=== PATIENT | female | born 1950 | race Hispanic/Latino ===

== ENCOUNTER 2018-04-21 13:10 | Inpatient (IN) | payer MEDICARE ==
[~2018-04-21] VITALS: Ht 152.4 cm; Wt 85.5 kg
[2018-04-21 14:00] LABS: BASOPHILS % (AUTO) 1.3 % (0.0-5.0); EOSINOPHILS % (AUTO) 1.3 % (0.0-8.0); HEMATOCRIT 41.9 % (36-48); LYMPHOCYTES % (AUTO) 21.7 % (21.0-51.0); MEAN CORPUSCULAR HEMOGLOBIN 30.2 pg (27.0-33.0); MEAN CORPUSCULAR HGB CONC 32.7 g/dL (32.0-36.0); MEAN CORPUSCULAR VOLUME 92.2 fL (79-99); MONOCYTES % (AUTO) 8.2 % (3.0-13.0); NEUTROPHILS % (AUTO) 67.5 % (40.0-77.0); NUCLEATED RED BLOOD CELLS 0.1 % (0.0-0.19); PLATELET COUNT (AUTO) 200 K/uL (130-400); RED BLOOD CELL COUNT(AUTO) 4.54 MIL/uL (4.00-5.50); RED CELL DISTRIBUTION WIDTH 13.9 % (11.0-15.5); WHITE BLOOD COUNT (AUTO) 7.4 K/uL (4.8-10.8)
[2018-04-21] MEDS ORDERED: FAMOTIDINE/PF 20 MG/2 ML VIAL IV ONE (14:00)
[2018-04-21] MEDS ORDERED: SODIUM CHLORIDE 0.9% 500ML 500 ML IV ONE (14:00)
[2018-04-21 14:07] LABS: CREATININE 0.6 mg/dL (0.5-1.5); POTASSIUM 3.6 mmol/L (3.5-5.1)
[2018-04-21 14:11] LABS: ALBUMIN 3.7 g/dL (3.5-5.0); BILIRUBIN,TOTAL 0.6 mg/dL (0.2-1.0); TOTAL PROTEIN, SERUM 7.6 g/dL (6.0-8.3)
[2018-04-21 14:23] LABS: INR 1.05 (0.85-1.15); PARTIAL THROMBOPLASTIN TIME 28.2 SEC (26.3-35.5)
[2018-04-21 14:24] LABS: B-TYPE NATRIURETIC PEPTIDE 26 pg/mL (0-100)
[2018-04-21] MEDS ORDERED: ACETAMINOPHEN 325 MG TAB PO PRN (16:15)
[2018-04-21] MEDS ORDERED: HYDRALAZINE HCL 20 MG/ML VIAL IV PRN (16:15)
[2018-04-21] MEDS ORDERED: ONDANSETRON HCL 4 MG/2 ML VIAL IV PRN (16:15)
[2018-04-21] MEDS ORDERED: MORPHINE SULFATE 4 MG/1ML SYG IV PRN (16:15)
[2018-04-21 18:35] LABS: HEMATOCRIT 37.5 % (36-48)
[2018-04-21 19:15] VITALS: BP 146/92
[2018-04-21] MEDS: SODIUM CHLORIDE 0.9% 1000ML 1,000 ML IV SCH (20:23)
[2018-04-21] MEDS ORDERED: DIATR MEGLU/DIATRIZOATE SODIUM 30 ML BOTTLE ONE (21:33)
[2018-04-21] MEDS ORDERED: IOHEXOL-350 75 ML VIAL IV ONE (22:20)
[2018-04-22 01:52] LABS: APPEARANCE,URINE Clear (CLEAR); BILIRUBIN,URINE Negative (NEGATIVE); COLOR,URINE Yellow (YELLOW); GLUCOSE, URINE (UA) Negative (NEGATIVE); KETONES,URINE Negative (NEGATIVE); LEUKOCYTE ESTERASE ,URINE Negative (NEGATIVE); NITRATE,URINE Negative (NEGATIVE); OCCULT BLOOD,URINE Negative (NEGATIVE); PROTEIN,URINE Negative (NEGATIVE); UROBILINOGEN,URINE 0.2 mg/dL (0.2-1.0)
[2018-04-22 04:00] VITALS: BP 132/85
[2018-04-22 07:30] VITALS: BP 143/86
[2018-04-22] MEDS: PANTOPRAZOLE 40 MG/VIAL IVP SCH (09:00)
[2018-04-22 09:08] LABS: HEMATOCRIT 38.2 % (36-48)
[2018-04-22 11:00] VITALS: BP 153/94
[2018-04-22] MEDS: SODIUM CHLORIDE 0.9% 1000ML 1,000 ML IV SCH ×2 (12:45→22:14)
[2018-04-22 14:05] LABS: HEMATOCRIT 36.1 % (36-48)
[2018-04-22 16:00] VITALS: BP 141/80
[2018-04-22 20:00] VITALS: BP_SYST 142; BP_SYST 154; BP_DIAS 73; BP_DIAS 80
[2018-04-22 21:16] LABS: HEMATOCRIT 36.2 % (36-48)
[2018-04-23] VITALS: BP 150/70
[2018-04-23 04:00] VITALS: BP 154/78
[2018-04-23 08:00] VITALS: BP 131/59
[2018-04-23] MEDS ORDERED: SIMV5TAB6 PO (08:56)
[2018-04-23] MEDS ORDERED: LOSA1TAB37 PO (08:57)
[2018-04-23] MEDS ORDERED: GLIM2TAB3 PO (08:58)
[2018-04-23] MEDS ORDERED: SITA100T12 PO (08:58)
[2018-04-23] MEDS ORDERED: TOLT4CAP PO (09:00)
[2018-04-23] MEDS ORDERED: AEC81 PO (09:00)
[2018-04-23 09:01] LABS: HEMATOCRIT 38.3 % (36-48)
[2018-04-23] MEDS ORDERED: MONT10TA24 PO (09:01)
[2018-04-23] MEDS ORDERED: LEVO5TAB29 PO (09:03)
[2018-04-23] MEDS ORDERED: MELO-108 PO (09:04)
[2018-04-23] MEDS ORDERED: FLUT16H NASAL ×2 (09:05→09:07)
[2018-04-23] MEDS ORDERED: CYAN500011 PO (09:07)
[2018-04-23] MEDS ORDERED: OMEG1CAP83 PO (09:08)
[2018-04-23] MEDS ORDERED: MILK THISTLE PO (09:10)
[2018-04-23] MEDS: PANTOPRAZOLE 40 MG/VIAL IVP SCH (10:19)
[2018-04-23 12:00] VITALS: BP 139/90
[2018-04-23 14:34] LABS: HEMATOCRIT 37.2 % (36-48); MEAN CORPUSCULAR HEMOGLOBIN 30.5 pg (27.0-33.0); MEAN CORPUSCULAR HGB CONC 32.8 g/dL (32.0-36.0); MEAN CORPUSCULAR VOLUME 93.1 fL (79-99); NUCLEATED RED BLOOD CELLS 0.2 % (0.0-0.19); PLATELET COUNT (AUTO) 184 K/uL (130-400); WHITE BLOOD COUNT (AUTO) 6.2 K/uL (4.8-10.8)
[2018-04-23 16:00] VITALS: BP 133/66
== END 2018-04-23 18:50 | disposition home or self-care (01) | DRG 379 ==
LOC: EDH 13:10 → OBSVTOIN 16:04 → EDHIP 16:04 → INTOOBSV 16:04 → 3DH 18:53
PROVIDERS: ADMIT Internal Medicine; ATTEND Internal Medicine
DX: K92.2 Gastrointestinal hemorrhage, unspecified (principal); E11.42 Type 2 diabetes mellitus with diabetic polyneuropathy; E66.01 Morbid (severe) obesity due to excess calories; Z68.36 Body mass index [BMI] 36.0-36.9, adult; E78.5 Hyperlipidemia, unspecified; F03.90 Unspecified dementia, unspecified severity, without behavioral disturbance, psychotic disturbance, mood disturbance, and anxiety; F32.9 Major depressive disorder, single episode, unspecified; F41.9 Anxiety disorder, unspecified; H04.129 Dry eye syndrome of unspecified lacrimal gland; H81.10 Benign paroxysmal vertigo, unspecified ear; I10 Essential (primary) hypertension; J30.9 Allergic rhinitis, unspecified; K42.9 Umbilical hernia without obstruction or gangrene; K57.90 Diverticulosis of intestine, part unspecified, without perforation or abscess without bleeding; K63.5 Polyp of colon; K76.0 Fatty (change of) liver, not elsewhere classified; K80.20 Calculus of gallbladder without cholecystitis without obstruction; N39.46 Mixed incontinence; H26.9 Unspecified cataract; Z90.710 Acquired absence of both cervix and uterus; Z79.84 Long term (current) use of oral hypoglycemic drugs; Z83.3 Family history of diabetes mellitus; Z82.49 Family history of ischemic heart disease and other diseases of the circulatory system; Z82.3 Family history of stroke; Z80.9 Family history of malignant neoplasm, unspecified
CPT/HCPCS: 36415; 71045; 74178; 80053; 81003; 82270; 82550; 82948; 83605; 83690; 83880; 84484; 85014; 85018; 85025; 85027; 85610; 85730; 93005; A4344; C9113; G0378; J3490; J7030; J7040; Q9963; Q9967

== ENCOUNTER 2018-05-01 07:35 | Day surgery (SDC) | payer MEDICARE ==
[~2018-05-01] VITALS: Ht 149.9 cm; Wt 82.4 kg
[~2018-05-01 07:35] MED LIST: CYAN500011 PO; FLUT16H NASAL; GLIM2TAB3 PO; LEVO5TAB29 PO; LOSA1TAB37 PO; MONT10TA24 PO; SIMV5TAB6 PO; SITA100T12 PO; TOLT4CAP PO
[2018-05-01 07:46] VITALS: BP 145/63
[2018-05-01] MEDS ORDERED: SODIUM CHLORIDE 0.9% 1000ML 1,000 ML IV ONE (08:25)
[2018-05-01] MEDS ORDERED: PROPOFOL 10 MG/ML 20ML VIAL IV ONE (08:28)
[2018-05-01] MEDS ORDERED: EPHEDRINE SULFATE 50 MG/ML AMPULE ONE (08:48)
[2018-05-01 09:02] VITALS: BP 99/60
[2018-05-01 09:07] VITALS: BP 106/64
[2018-05-01 09:12] VITALS: BP 108/67
[2018-05-01 09:17] VITALS: BP 120/72
[2018-05-01 09:25] VITALS: BP 124/70
== END 2018-05-01 09:45 | disposition home or self-care (01) ==
LOC: DAH 07:35 → ENDO 07:35
PROVIDERS: ATTEND Internal Medicine
DX: D12.0 Benign neoplasm of cecum (principal); D12.2 Benign neoplasm of ascending colon; K57.30 Diverticulosis of large intestine without perforation or abscess without bleeding; K64.0 First degree hemorrhoids; E78.5 Hyperlipidemia, unspecified; E11.9 Type 2 diabetes mellitus without complications; I10 Essential (primary) hypertension; E78.00 Pure hypercholesterolemia, unspecified; M19.90 Unspecified osteoarthritis, unspecified site; F32.9 Major depressive disorder, single episode, unspecified; K76.0 Fatty (change of) liver, not elsewhere classified; Z90.710 Acquired absence of both cervix and uterus; Z98.51 Tubal ligation status; Z79.899 Other long term (current) drug therapy; Z79.84 Long term (current) use of oral hypoglycemic drugs; Z98.890 Other specified postprocedural states; Z68.37 Body mass index [BMI] 37.0-37.9, adult
CPT/HCPCS: 45385; 82948 ×2; 88305; 93005; A4606; J2704; J3490; J7030

== ENCOUNTER 2018-08-11 18:06 | Emergency (ER) | payer MEDICARE ==
[~2018-08-11 18:06] MED LIST changes: +SIMV5TAB58 PO; -SIMV5TAB6 PO
[2018-08-11 18:44] LABS: BASOPHILS % (AUTO) 0.6 % (0.0-5.0); LYMPHOCYTES % (AUTO) 9.1 % (21.0-51.0); MEAN CORPUSCULAR HEMOGLOBIN 29.8 pg (27.0-33.0); MEAN CORPUSCULAR HGB CONC 33.5 g/dL (32.0-36.0); MONOCYTES % (AUTO) 7.7 % (3.0-13.0); NEUTROPHILS % (AUTO) 82.6 % (40.0-77.0); NUCLEATED RED BLOOD CELLS 0.1 % (0.0-0.19); PLATELET COUNT (AUTO) 200 K/uL (130-400); RED BLOOD CELL COUNT(AUTO) 4.61 MIL/uL (4.00-5.50); RED CELL DISTRIBUTION WIDTH 13.7 % (11.0-15.5); WHITE BLOOD COUNT (AUTO) 8.8 K/uL (4.8-10.8)
[2018-08-11 18:56] LABS: INR 1.06 (0.85-1.15); PROTHROMBIN TIME 11.1 SEC (9.6-11.6)
[2018-08-11 18:58] LABS: CREATININE 0.6 mg/dL (0.5-1.5); POTASSIUM 3.3 mmol/L (3.5-5.1)
[2018-08-11 19:03] LABS: ALBUMIN 3.7 g/dL (3.5-5.0); BILIRUBIN,TOTAL 0.5 mg/dL (0.2-1.0); TOTAL PROTEIN, SERUM 7.6 g/dL (6.0-8.3)
[2018-08-11] MEDS ORDERED: KETOROLAC TROMETHAMINE 15MG/ML ONE (19:23)
[2018-08-11] MEDS ORDERED: LIDOCAINE 5% TOPICAL PATCH TP ONE (19:23)
== END 2018-08-11 20:26 | disposition home or self-care (01) ==
LOC: EDH 18:06
DX: G24.3 Spasmodic torticollis (principal); I10 Essential (primary) hypertension; E11.9 Type 2 diabetes mellitus without complications; Z90.710 Acquired absence of both cervix and uterus; Z98.51 Tubal ligation status
CPT/HCPCS: 36415; 71045; 72040; 80053; 84484; 85025; 85610; 85730; 93005; 96372; 99284; J1885

== ENCOUNTER → 2019-01-15 | Outpatient (CLI) | payer MEDICARE | END | disposition home or self-care (01) | LOC: RAH 08:33 | PROVIDERS: ATTEND Internal Medicine | DX: Z12.31 Encounter for screening mammogram for malignant neoplasm of breast (principal) | CPT/HCPCS: 77067 ==

== ENCOUNTER → 2019-01-31 | Outpatient (CLI) | payer MEDICARE | END | disposition home or self-care (01) | LOC: RAH 14:59 | PROVIDERS: ATTEND Internal Medicine | DX: M25.561 Pain in right knee (principal) | CPT/HCPCS: 73562 ==

== ENCOUNTER → 2019-03-24 | Outpatient (CLI) | payer MEDICARE ==
[~2019-03-24] MED LIST changes: -GLIM2TAB3 PO; +GLIM2TAB4 PO
== END | disposition home or self-care (01) ==
LOC: RAH 09:13
PROVIDERS: ATTEND Internal Medicine Gastroenterology
DX: K76.0 Fatty (change of) liver, not elsewhere classified (principal); K80.20 Calculus of gallbladder without cholecystitis without obstruction
CPT/HCPCS: 76700; 93975

== ENCOUNTER → 2020-01-19 | Outpatient (CLI) | payer MEDICARE ==
[~2020-01-19] MED LIST changes: +GLIM2TAB30 PO; -GLIM2TAB4 PO; -MONT10TA24 PO; +MONT10TA26 PO
== END | disposition home or self-care (01) ==
LOC: RAH 09:39
PROVIDERS: ATTEND Internal Medicine
DX: Z12.31 Encounter for screening mammogram for malignant neoplasm of breast (principal); N64.89 Other specified disorders of breast
CPT/HCPCS: 77067

== ENCOUNTER 2020-06-01 12:27 | Inpatient (IN) | payer MEDICARE ==
[~2020-06-01] VITALS: Ht 149.9 cm; Wt 84.4 kg
[~2020-06-01 12:27] MED LIST changes: +MONT-39 PO; -MONT10TA26 PO
[2020-06-01 13:50] LABS: HEMATOCRIT 41.8 % (36-48); LYMPHOCYTES % (AUTO) 10.1 % (21.0-51.0); MEAN CORPUSCULAR HEMOGLOBIN 30.1 pg (27.0-33.0); MEAN CORPUSCULAR HGB CONC 34.2 g/dL (32.0-36.0); MONOCYTES % (AUTO) 16.6 % (3.0-13.0); NEUTROPHILS % (AUTO) 72.7 % (40.0-77.0); PLATELET COUNT (AUTO) 199 K/uL (130-400); RED BLOOD CELL COUNT(AUTO) 4.75 MIL/uL (4.00-5.50); RED CELL DISTRIBUTION WIDTH 12.6 % (11.0-15.5); WHITE BLOOD COUNT (AUTO) 3.6 K/uL (4.8-10.8)
[2020-06-01 13:51] LABS: APPEARANCE,URINE Clear (CLEAR); BILIRUBIN,URINE Negative (NEGATIVE); COLOR,URINE Yellow (YELLOW); GLUCOSE, URINE (UA) TRACE mg/dL (NEGATIVE); KETONES,URINE Negative (NEGATIVE); LEUKOCYTE ESTERASE ,URINE Negative (NEGATIVE); NITRATE,URINE Negative (NEGATIVE); OCCULT BLOOD,URINE Negative (NEGATIVE); PROTEIN,URINE Negative (NEGATIVE)
[2020-06-01 14:00] LABS: CARBON DIOXIDE 27 mmol/L (21-32); CHLORIDE 98 mmol/L (101-111); CREATININE 0.7 mg/dL (0.5-1.5); GLOMERULAR FILTR. RATE CALC 88 mL/min (>60); GLUCOSE,RANDOM 155 mg/dL (70-105); POTASSIUM 3.4 mmol/L (3.5-5.1); SODIUM SERUM 135 mmol/L (136-145); UREA NITROGEN, BLOOD 9 mg/dL (7-18)
[2020-06-01 14:03] LABS: INR 1.13 (0.85-1.15)
[2020-06-01 14:04] LABS: PARTIAL THROMBOPLASTIN TIME 34.8 SEC (26.3-35.5)
[2020-06-01] MEDS ORDERED: CEFTRIAXONE 1G VIAL ONE (14:05)
[2020-06-01] MEDS ORDERED: AZITHROMYCIN 500MG+NS 250ML 250 ML IV ONE (14:05)
[2020-06-01] MEDS ORDERED: DEXAMETHASONE SOD PHOSPHATE 10MG/ML 1ML VIAL ONE (14:05)
[2020-06-01 14:06] LABS: BACTERIA,URINE Rare /HPF (None Seen); RBC,URINE 0-1 /HPF (0-1)
[2020-06-01 14:10] LABS: ALANINE AMINOTRANSFERASE 49 U/L (12-78); ASPARTATE AMINOTRANSFERASE 54 U/L (10-37); BILIRUBIN,TOTAL 0.5 mg/dL (0.2-1.0); CREATINE KINASE, TOTAL 154 U/L (21-232); MYOGLOBIN 116 ng/mL (10-92); TOTAL PROTEIN, SERUM 7.4 g/dL (6.0-8.3); TROPONIN I < 0.04 ng/mL (0.00-0.06)
[2020-06-01 14:22] LABS: ABG BASE EXCESS 1.2 mmol/L (-2.0-3.0); ABG HCO3 24.2 mmol/L (21.0-28.0); ABG OXYGEN SATURATION 88.9 % (95.0-99.0); ABG PCO2 34 mmHg (32-45)
[2020-06-01] MEDS ORDERED: FLUT16H NASAL (15:06)
[2020-06-01] MEDS ORDERED: ALBU2.5V2 IH (15:17)
[2020-06-01] MEDS ORDERED: EXEN2PEN SQ (15:17)
[2020-06-01] MEDS ORDERED: OMEP40CA21 PO (15:17)
[2020-06-01] MEDS ORDERED: cpap NASAL (15:17)
[2020-06-01] MEDS ORDERED: LOSA50TA64 PO (15:17)
[2020-06-01] MEDS ORDERED: MEMA10TA11 PO (15:17)
[2020-06-01] MEDS ORDERED: MIRA25TA PO (15:17)
[2020-06-01] MEDS ORDERED: DEXA6TAB PO (15:17)
[2020-06-01] MEDS ORDERED: ALBU8.5H8 IH (15:17)
[2020-06-01] MEDS ORDERED: GLIM1TAB18 PO (15:17)
[2020-06-01] MEDS ORDERED: TRAZ-185 PO (15:17)
[2020-06-01] MEDS ORDERED: NAPHAOS OD (15:20)
[2020-06-01] MEDS ORDERED: LORAZEPAM 2 MG/ML 1 ML VIAL ONE (23:20)
[2020-06-02] MEDS ORDERED: LACTULOSE 20 GM/30 ML UDCUP PO PRN
[2020-06-02] MEDS ORDERED: POTASSIUM CHLORIDE 20MEQ/100ML 100 ML IV PRN
[2020-06-02] MEDS ORDERED: ACETAMINOPHEN 325 MG TAB PO PRN ×2
[2020-06-02] MEDS ORDERED: ONDANSETRON 4MG INJ IV PRN
[2020-06-02] MEDS ORDERED: POTASSIUM CHLORIDE 10% ELIXIR 20 MEQ/15 ML UDCUP PO PRN
[2020-06-02] MEDS ORDERED: DEXTROSE 50%-WATER 50 ML DISP.SYRIN IV PRN
[2020-06-02] MEDS ORDERED: DIPHENHYDRAMINE HCL 25 MG CAPSULE PO PRN
[2020-06-02] MEDS ORDERED: DiphenhydrAMINE HCL 50 MG/ML VIAL IV PRN
[2020-06-02] MEDS ORDERED: LIDOCAINE HCL-MPF 1% 2ML VIAL IV PRN
[2020-06-02] MEDS ORDERED: MAG/ALUM/SIMETH 30 ML UDCUP PO PRN
[2020-06-02] MEDS ORDERED: KCL 20 MEQ ERTAB PO PRN
[2020-06-02] MEDS ORDERED: GLUCAGON 1MG KIT 1 MG ML IM PRN
[2020-06-02] MEDS: INSULIN HUMULIN R 100 UNIT/ML 3ML SQ SCH ×4 (07:30→21:00)
[2020-06-02 07:40] LABS: HEMATOCRIT 43.3 % (36-48); MEAN CORPUSCULAR HEMOGLOBIN 29.7 pg (27.0-33.0); MEAN CORPUSCULAR HGB CONC 33.5 g/dL (32.0-36.0); MEAN CORPUSCULAR VOLUME 88.7 fL (79-99); RED BLOOD CELL COUNT(AUTO) 4.88 MIL/uL (4.00-5.50); WHITE BLOOD COUNT (AUTO) 4.8 K/uL (4.8-10.8)
[2020-06-02 07:57] LABS: CREATININE 0.6 mg/dL (0.5-1.5); POTASSIUM 3.6 mmol/L (3.5-5.1)
[2020-06-02] MEDS ORDERED: ASPIRIN 81 MG EC TAB PO SCH (09:00)
[2020-06-02] MEDS: ENOXAPARIN SODIUM 40 MG/0.4 ML SYRINGE SQ SCH ×2 (09:00→21:00)
[2020-06-02] MEDS: AZITHROMYCIN 500MG+NS 250ML 250 ML IV SCH (09:00)
[2020-06-02] MEDS: KCL 20 MEQ ERTAB PO SCH (09:00)
[2020-06-02] MEDS: MONTELUKAST SODIUM 10 MG TAB PO SCH (09:00)
[2020-06-02] MEDS: FUROSEMIDE 20MG VIAL IV SCH (09:00)
[2020-06-02] MEDS: FAMOTIDINE 20MG TAB PO SCH ×2 (09:00→21:00)
[2020-06-02] MEDS: CEFTRIAXONE 1G VIAL IVP SCH (09:00)
[2020-06-02] MEDS: LOSARTAN 50 MG TABLET PO SCH (09:00)
[2020-06-02] MEDS: DEXAMETHASONE SOD PHOSPHATE 4 MG/ML 1ML VIAL IVP SCH (09:00)
[2020-06-02] MEDS ORDERED: DEXAMETHASONE SOD PHOSPHATE 10MG/ML 1ML VIAL ONE (09:24)
[2020-06-02] MEDS ORDERED: FAMOTIDINE 20MG TAB ONE ×2 (09:24→20:51)
[2020-06-02] MEDS ORDERED: FUROSEMIDE 20MG VIAL ONE (09:25)
[2020-06-02] MEDS ORDERED: KCL 20 MEQ ERTAB PO ONE (09:25)
[2020-06-02] MEDS ORDERED: ENOXAPARIN SODIUM 40 MG/0.4 ML SYRINGE SQ ONE ×2 (09:26→20:52)
[2020-06-02] MEDS ORDERED: AZITHROMYCIN 500MG+NS 250ML 250 ML IV ONE (09:26)
[2020-06-02] MEDS ORDERED: CEFTRIAXONE 1G VIAL ONE (09:27)
[2020-06-02] MEDS ORDERED: INSULIN HUMULIN R 100 UNIT/ML 3ML ONE ×4 (09:27→20:53)
[2020-06-02] MEDS ORDERED: LOSARTAN 50 MG TABLET ONE (09:27)
[2020-06-02] MEDS: TRAZODONE HCL 50 MG TAB PO SCH (17:00)
[2020-06-02] MEDS ORDERED: TRAZODONE HCL 50 MG TAB ONE (20:57)
[2020-06-02] MEDS: INSULIN GLARGINE 100 UNITS/ML 10 ML VIAL SQ SCH (21:00)
[2020-06-02] MEDS ORDERED: NON-FORMULARY MEDICATION 1 EACH (Simvastatin 5 MG) PO SCH (21:00)
[2020-06-02] MEDS: SIMVASTATIN 10 MG TABLET PO SCH (21:00)
[2020-06-02 23:30] VITALS: BP 119/57
[2020-06-03] MEDS: GUAIFENESIN-DM 200/20 MG 10 ML PO PRN ×3 (03:12→21:35)
[2020-06-03] MEDS ORDERED: 0.9%NACL 1000ML 1,000 ML IV ONE (05:48)
[2020-06-03 06:18] LABS: HEMATOCRIT 43.6 % (36-48); MEAN CORPUSCULAR HEMOGLOBIN 29.8 pg (27.0-33.0); MEAN CORPUSCULAR HGB CONC 33.7 g/dL (32.0-36.0); MEAN CORPUSCULAR VOLUME 88.4 fL (79-99); RED BLOOD CELL COUNT(AUTO) 4.93 MIL/uL (4.00-5.50); RED CELL DISTRIBUTION WIDTH 13.1 % (11.0-15.5); WHITE BLOOD COUNT (AUTO) 9.1 K/uL (4.8-10.8)
[2020-06-03] MEDS: INSULIN HUMULIN R 100 UNIT/ML 3ML SQ SCH ×4 (06:20→21:37)
[2020-06-03 06:22] LABS: CREATININE 0.6 mg/dL (0.5-1.5); POTASSIUM 3.4 mmol/L (3.5-5.1)
[2020-06-03 07:09] VITALS: BP 130/75
[2020-06-03 08:30] VITALS: BP 135/78
[2020-06-03] MEDS: CEFTRIAXONE 1G VIAL IVP SCH (09:56)
[2020-06-03] MEDS: DEXAMETHASONE SOD PHOSPHATE 4 MG/ML 1ML VIAL IVP SCH (09:56)
[2020-06-03] MEDS: FAMOTIDINE 20MG TAB PO SCH ×2 (09:57→21:35)
[2020-06-03] MEDS: LOSARTAN 50 MG TABLET PO SCH (09:57)
[2020-06-03] MEDS: KCL 20 MEQ ERTAB PO SCH (09:57)
[2020-06-03] MEDS: MONTELUKAST SODIUM 10 MG TAB PO SCH (09:57)
[2020-06-03] MEDS: FUROSEMIDE 20MG VIAL IV SCH (09:57)
[2020-06-03] MEDS: ENOXAPARIN SODIUM 40 MG/0.4 ML SYRINGE SQ SCH ×2 (10:00→21:36)
[2020-06-03] MEDS: AZITHROMYCIN 500MG+NS 250ML 250 ML IV SCH (10:01)
[2020-06-03 12:19] VITALS: BP 114/78
[2020-06-03 16:32] VITALS: BP 116/64
[2020-06-03] MEDS: TRAZODONE HCL 50 MG TAB PO SCH (17:51)
[2020-06-03 19:00] VITALS: BP 139/72
[2020-06-03] MEDS: SIMVASTATIN 10 MG TABLET PO SCH (21:35)
[2020-06-03] MEDS: INSULIN GLARGINE 100 UNITS/ML 10 ML VIAL SQ SCH (21:38)
[2020-06-04] VITALS: BP 136/79
[2020-06-04 04:00] VITALS: BP 137/80
[2020-06-04 04:55] LABS: HEMATOCRIT 41.8 % (36-48); MEAN CORPUSCULAR HEMOGLOBIN 29.6 pg (27.0-33.0); MEAN CORPUSCULAR VOLUME 89.5 fL (79-99); RED BLOOD CELL COUNT(AUTO) 4.67 MIL/uL (4.00-5.50); RED CELL DISTRIBUTION WIDTH 13.2 % (11.0-15.5); WHITE BLOOD COUNT (AUTO) 9.4 K/uL (4.8-10.8)
[2020-06-04 05:08] LABS: CREATININE 0.5 mg/dL (0.5-1.5); POTASSIUM 3.9 mmol/L (3.5-5.1)
[2020-06-04] MEDS: INSULIN HUMULIN R 100 UNIT/ML 3ML SQ SCH ×4 (07:30→20:59)
[2020-06-04] MEDS: FUROSEMIDE 20MG VIAL IV SCH (10:11)
[2020-06-04] MEDS: AZITHROMYCIN 500MG+NS 250ML 250 ML IV SCH (10:12)
[2020-06-04] MEDS: KCL 20 MEQ ERTAB PO SCH (10:12)
[2020-06-04] MEDS: FAMOTIDINE 20MG TAB PO SCH ×2 (10:13→20:56)
[2020-06-04] MEDS: MONTELUKAST SODIUM 10 MG TAB PO SCH (10:13)
[2020-06-04] MEDS: LOSARTAN 50 MG TABLET PO SCH (10:13)
[2020-06-04] MEDS: DEXAMETHASONE SOD PHOSPHATE 4 MG/ML 1ML VIAL IVP SCH (10:13)
[2020-06-04] MEDS: CEFTRIAXONE 1G VIAL IVP SCH (10:14)
[2020-06-04] MEDS ORDERED: PHARMACY COMMUNICATION MISC SCH (10:15)
[2020-06-04] MEDS: ENOXAPARIN SODIUM 40 MG/0.4 ML SYRINGE SQ SCH ×2 (11:10→20:57)
[2020-06-04 11:50] VITALS: BP 141/91
[2020-06-04] MEDS ORDERED: REMDESIVIR (EUA) 520 200 MG in 0.9% NACL 250ML 250 ML IV ONE (14:00)
[2020-06-04] MEDS ORDERED: COMPOUND IV REFRIGERATED 1 EACH IVSOLN MISC PRN (14:00)
[2020-06-04 15:56] VITALS: BP 127/75
[2020-06-04] MEDS: TRAZODONE HCL 50 MG TAB PO SCH (17:15)
[2020-06-04 20:00] VITALS: BP 137/95
[2020-06-04] MEDS: SIMVASTATIN 10 MG TABLET PO SCH (20:56)
[2020-06-04] MEDS: INSULIN GLARGINE 100 UNITS/ML 10 ML VIAL SQ SCH (20:58)
[2020-06-05] VITALS: BP 141/78
[2020-06-05 04:33] VITALS: BP 145/71
[2020-06-05] MEDS ORDERED: REMDESIVIR LABS MISC SCH (06:00)
[2020-06-05] MEDS: INSULIN HUMULIN R 100 UNIT/ML 3ML SQ SCH ×5 (07:30→21:40)
[2020-06-05 08:00] VITALS: BP 121/75
[2020-06-05 09:05] LABS: ALBUMIN 2.7 g/dL (3.5-5.0); BILIRUBIN,DIRECT 0.2 mg/dL (0.0-0.3); BILIRUBIN,TOTAL 0.8 mg/dL (0.2-1.0); TOTAL PROTEIN, SERUM 7.4 g/dL (6.0-8.3)
[2020-06-05] MEDS: FUROSEMIDE 20MG VIAL IV SCH (09:46)
[2020-06-05] MEDS: AZITHROMYCIN 500MG+NS 250ML 250 ML IV SCH (09:46)
[2020-06-05] MEDS: CEFTRIAXONE 1G VIAL IVP SCH (09:47)
[2020-06-05] MEDS: LOSARTAN 50 MG TABLET PO SCH (09:47)
[2020-06-05] MEDS: DEXAMETHASONE SOD PHOSPHATE 4 MG/ML 1ML VIAL IVP SCH (09:47)
[2020-06-05] MEDS: FAMOTIDINE 20MG TAB PO SCH ×2 (09:48→21:27)
[2020-06-05] MEDS: MONTELUKAST SODIUM 10 MG TAB PO SCH (09:48)
[2020-06-05] MEDS: ENOXAPARIN SODIUM 40 MG/0.4 ML SYRINGE SQ SCH ×2 (09:49→21:30)
[2020-06-05] MEDS ORDERED: POTASSIUM CHLORIDE 10MEQ SR TAB PO ONE (10:35)
[2020-06-05] MEDS: KCL 20 MEQ ERTAB PO SCH (10:48)
[2020-06-05 11:57] VITALS: BP 127/85
[2020-06-05] MEDS ORDERED: GUAIFENESIN-CODEINE 5 ML SYRUP PO PRN (14:15)
[2020-06-05] MEDS ORDERED: 0.9%NACL 50ML 50 ML IV ONE (14:45)
[2020-06-05] MEDS: REMDESIVIR (EUA) 520 100 MG in 0.9% NACL 250ML 250 ML IV SCH (14:48)
[2020-06-05 14:51] LABS: ABG BASE EXCESS 2.3 mmol/L (-2.0-3.0); ABG HCO3 25.8 mmol/L (21.0-28.0); ABG OXYGEN SATURATION 95.4 % (95.0-99.0); ABG PCO2 37 mmHg (32-45)
[2020-06-05] MEDS ORDERED: BUSPIRONE HCL 5 MG TABLET PO SCH (15:30)
[2020-06-05 16:00] VITALS: BP 119/71
[2020-06-05 20:00] VITALS: BP 129/74
[2020-06-05] MEDS ORDERED: TRAZODONE HCL 50 MG TAB PO SCH (21:00)
[2020-06-05] MEDS ORDERED: INSULIN GLARGINE 100 UNITS/ML 10 ML VIAL SQ SCH (21:00)
[2020-06-05] MEDS: SIMVASTATIN 10 MG TABLET PO SCH (21:27)
[2020-06-05] MEDS: BUSPIRONE HCL 5 MG TABLET PO SCH (21:27)
[2020-06-05] MEDS: TRAZODONE HCL 50 MG TAB PO SCH (21:27)
[2020-06-06 00:30] VITALS: BP 117/61
[2020-06-06 04:29] VITALS: BP 149/84
[2020-06-06 05:00] LABS: MEAN CORPUSCULAR HGB CONC 33.7 g/dL (32.0-36.0); MEAN CORPUSCULAR VOLUME 89.1 fL (79-99); RED BLOOD CELL COUNT(AUTO) 4.6 MIL/uL (4.00-5.50); RED CELL DISTRIBUTION WIDTH 12.9 % (11.0-15.5); WHITE BLOOD COUNT (AUTO) 11.2 K/uL (4.8-10.8)
[2020-06-06 05:06] LABS: CREATININE 0.6 mg/dL (0.5-1.5); POTASSIUM 3.6 mmol/L (3.5-5.1)
[2020-06-06 08:00] VITALS: BP 124/71
[2020-06-06] MEDS: LOSARTAN 50 MG TABLET PO SCH (09:00)
[2020-06-06] MEDS: AZITHROMYCIN 500MG+NS 250ML 250 ML IV SCH (09:00)
[2020-06-06] MEDS: MONTELUKAST SODIUM 10 MG TAB PO SCH (09:00)
[2020-06-06] MEDS: ENOXAPARIN SODIUM 40 MG/0.4 ML SYRINGE SQ SCH ×2 (09:00→22:28)
[2020-06-06] MEDS: CEFTRIAXONE 1G VIAL IVP SCH (10:57)
[2020-06-06] MEDS: BUSPIRONE HCL 5 MG TABLET PO SCH ×2 (10:58→22:29)
[2020-06-06] MEDS: KCL 20 MEQ ERTAB PO SCH (10:59)
[2020-06-06] MEDS: FAMOTIDINE 20MG TAB PO SCH ×2 (10:59→22:30)
[2020-06-06 12:00] VITALS: BP 136/80
[2020-06-06] MEDS: INSULIN HUMULIN R 100 UNIT/ML 3ML SQ SCH ×3 (13:28→21:00)
[2020-06-06] MEDS: INSULIN GLARGINE 100 UNITS/ML 10 ML VIAL SQ SCH ×2 (13:32→22:31)
[2020-06-06] MEDS: REMDESIVIR (EUA) 520 100 MG in 0.9% NACL 250ML 250 ML IV SCH (16:03)
[2020-06-06 17:00] VITALS: BP 143/94
[2020-06-06] MEDS ORDERED: MORPHINE 2 MG SYG IM PRN (17:15)
[2020-06-06] MEDS ORDERED: MORPHINE 2 MG SYG IVP PRN ×2 (18:00→20:15)
[2020-06-06 20:00] VITALS: BP 99/47
[2020-06-06] MEDS: DEXAMETHASONE SOD PHOSPHATE 4 MG/ML 1ML VIAL IVP SCH (22:29)
[2020-06-06] MEDS: SIMVASTATIN 10 MG TABLET PO SCH (22:29)
[2020-06-06] MEDS: TRAZODONE HCL 50 MG TAB PO SCH (22:29)
[2020-06-07] VITALS: BP 115/83
[2020-06-07 04:00] VITALS: BP 116/75
[2020-06-07] MEDS: INSULIN HUMULIN R 100 UNIT/ML 3ML SQ SCH ×4 (06:34→22:05)
[2020-06-07 06:44] LABS: HEMATOCRIT 41.7 % (36-48); MEAN CORPUSCULAR HEMOGLOBIN 29.8 pg (27.0-33.0); MEAN CORPUSCULAR HGB CONC 33.3 g/dL (32.0-36.0); MEAN CORPUSCULAR VOLUME 89.3 fL (79-99); RED BLOOD CELL COUNT(AUTO) 4.67 MIL/uL (4.00-5.50); RED CELL DISTRIBUTION WIDTH 13.4 % (11.0-15.5); WHITE BLOOD COUNT (AUTO) 9.3 K/uL (4.8-10.8)
[2020-06-07 06:54] LABS: CREATININE 0.6 mg/dL (0.5-1.5); POTASSIUM 4.3 mmol/L (3.5-5.1)
[2020-06-07 08:30] VITALS: BP 118/88
[2020-06-07] MEDS: ENOXAPARIN SODIUM 40 MG/0.4 ML SYRINGE SQ SCH ×2 (09:33→22:04)
[2020-06-07] MEDS: BUSPIRONE HCL 5 MG TABLET PO SCH ×3 (09:34→21:00)
[2020-06-07] MEDS: KCL 20 MEQ ERTAB PO SCH (09:34)
[2020-06-07] MEDS: LOSARTAN 50 MG TABLET PO SCH (09:34)
[2020-06-07] MEDS: DEXAMETHASONE SOD PHOSPHATE 4 MG/ML 1ML VIAL IVP SCH ×2 (09:34→22:04)
[2020-06-07] MEDS: MONTELUKAST SODIUM 10 MG TAB PO SCH (09:34)
[2020-06-07] MEDS: FAMOTIDINE 20MG TAB PO SCH ×2 (09:35→21:00)
[2020-06-07] MEDS: CEFTRIAXONE 1G VIAL IVP SCH (09:35)
[2020-06-07] MEDS: INSULIN GLARGINE 100 UNITS/ML 10 ML VIAL SQ SCH ×2 (09:37→22:04)
[2020-06-07] MEDS: AZITHROMYCIN 500MG+NS 250ML 250 ML IV SCH (09:39)
[2020-06-07 12:47] VITALS: BP 104/62
[2020-06-07 16:30] VITALS: BP 123/72
[2020-06-07 17:38] LABS: ALBUMIN 2.3 g/dL (3.5-5.0); BILIRUBIN,DIRECT 0.2 mg/dL (0.0-0.3); BILIRUBIN,TOTAL 0.5 mg/dL (0.2-1.0); TOTAL PROTEIN, SERUM 6.6 g/dL (6.0-8.3)
[2020-06-07] MEDS: REMDESIVIR (EUA) 520 100 MG in 0.9% NACL 250ML 250 ML IV SCH (18:00)
[2020-06-07 20:00] VITALS: BP 131/77
[2020-06-07] MEDS: SIMVASTATIN 10 MG TABLET PO SCH (21:00)
[2020-06-07] MEDS: TRAZODONE HCL 50 MG TAB PO SCH (21:00)
[2020-06-08] VITALS: BP 143/86
[2020-06-08 04:00] VITALS: BP 105/66
[2020-06-08 06:03] LABS: HEMATOCRIT 43.7 % (36-48); MEAN CORPUSCULAR HEMOGLOBIN 29.5 pg (27.0-33.0); MEAN CORPUSCULAR HGB CONC 32.7 g/dL (32.0-36.0); MEAN CORPUSCULAR VOLUME 90.1 fL (79-99); RED BLOOD CELL COUNT(AUTO) 4.85 MIL/uL (4.00-5.50); RED CELL DISTRIBUTION WIDTH 13.3 % (11.0-15.5); WHITE BLOOD COUNT (AUTO) 10.5 K/uL (4.8-10.8)
[2020-06-08 06:13] LABS: CREATININE 0.7 mg/dL (0.5-1.5); POTASSIUM 3.8 mmol/L (3.5-5.1)
[2020-06-08] MEDS: INSULIN HUMULIN R 100 UNIT/ML 3ML SQ SCH ×4 (06:49→22:04)
[2020-06-08] MEDS: DEXAMETHASONE SOD PHOSPHATE 4 MG/ML 1ML VIAL IVP SCH (07:46)
[2020-06-08] MEDS: LOSARTAN 50 MG TABLET PO SCH (07:46)
[2020-06-08] MEDS: CEFTRIAXONE 1G VIAL IVP SCH (07:46)
[2020-06-08] MEDS: KCL 20 MEQ ERTAB PO SCH (07:47)
[2020-06-08] MEDS: MONTELUKAST SODIUM 10 MG TAB PO SCH (07:47)
[2020-06-08] MEDS: FAMOTIDINE 20MG TAB PO SCH ×2 (07:47→22:00)
[2020-06-08] MEDS: ENOXAPARIN SODIUM 40 MG/0.4 ML SYRINGE SQ SCH ×2 (07:48→21:55)
[2020-06-08] MEDS: AZITHROMYCIN 500MG+NS 250ML 250 ML IV SCH (07:48)
[2020-06-08] MEDS: BUSPIRONE HCL 5 MG TABLET PO SCH ×3 (07:50→22:00)
[2020-06-08] MEDS: INSULIN GLARGINE 100 UNITS/ML 10 ML VIAL SQ SCH ×2 (07:51→22:04)
[2020-06-08 08:54] VITALS: BP 153/90
[2020-06-08 12:09] VITALS: BP 141/63
[2020-06-08 13:27] LABS: ALBUMIN 2.3 g/dL (3.5-5.0); BILIRUBIN,DIRECT 0.2 mg/dL (0.0-0.3); BILIRUBIN,TOTAL 0.4 mg/dL (0.2-1.0); TOTAL PROTEIN, SERUM 6.7 g/dL (6.0-8.3)
[2020-06-08] MEDS: REMDESIVIR (EUA) 520 100 MG in 0.9% NACL 250ML 250 ML IV SCH (15:07)
[2020-06-08 16:30] VITALS: BP 146/77
[2020-06-08 20:00] VITALS: BP 160/90
[2020-06-08] MEDS: TRAZODONE HCL 50 MG TAB PO SCH (21:55)
[2020-06-08] MEDS: SIMVASTATIN 10 MG TABLET PO SCH (22:00)
[2020-06-09] VITALS: BP 98/64
[2020-06-09 04:00] VITALS: BP 129/93
[2020-06-09] MEDS: INSULIN HUMULIN R 100 UNIT/ML 3ML SQ SCH (05:47)
[2020-06-09 06:24] LABS: HEMATOCRIT 47.1 % (36-48); MEAN CORPUSCULAR HEMOGLOBIN 29.1 pg (27.0-33.0); MEAN CORPUSCULAR HGB CONC 31.6 g/dL (32.0-36.0); RED BLOOD CELL COUNT(AUTO) 5.12 MIL/uL (4.00-5.50); RED CELL DISTRIBUTION WIDTH 13.8 % (11.0-15.5)
[2020-06-09 06:58] LABS: ALBUMIN 2.4 g/dL (3.5-5.0); BILIRUBIN,DIRECT 0.3 mg/dL (0.0-0.3); BILIRUBIN,TOTAL 0.6 mg/dL (0.2-1.0); CREATININE 0.7 mg/dL (0.5-1.5); POTASSIUM 3.7 mmol/L (3.5-5.1); TOTAL PROTEIN, SERUM 6.9 g/dL (6.0-8.3)
[2020-06-09] MEDS ORDERED: ATROPINE 1MG SYG IVP ONE (08:10)
== END 2020-06-09 08:35 | disposition expired | DRG 208 ==
LOC: EDH 12:27 → OBSVTOIN 15:00 → EDHIP 15:00 → 2AH 06-02 23:00
PROVIDERS: ADMIT Internal Medicine; ATTEND Internal Medicine
PROC: XW13325 Transfusion of Convalescent Plasma (Nonautologous) into Peripheral Vein, Percutaneous Approach, New Technology Group 5 (ICD-10-PCS; 2020-06-03)
PROC: XW033E5 Introduction of Remdesivir Anti-infective into Peripheral Vein, Percutaneous Approach, New Technology Group 5 (ICD-10-PCS; 2020-06-04)
PROC: 5A09457 Assistance with Respiratory Ventilation, 24-96 Consecutive Hours, Continuous Positive Airway Pressure (ICD-10-PCS; 2020-06-06)
PROC: 5A1935Z Respiratory Ventilation, Less than 24 Consecutive Hours (ICD-10-PCS; principal; 2020-06-09)
PROC: 0BH17EZ Insertion of Endotracheal Airway into Trachea, Via Natural or Artificial Opening (ICD-10-PCS; 2020-06-09)
PROC: 5A12012 Performance of Cardiac Output, Single, Manual (ICD-10-PCS; 2020-06-09)
DX: U07.1 COVID-19 (principal); J12.82 Pneumonia due to coronavirus disease 2019; J96.01 Acute respiratory failure with hypoxia; G10 Huntington's disease; N39.0 Urinary tract infection, site not specified; B96.20 Unspecified Escherichia coli [E. coli] as the cause of diseases classified elsewhere; D69.6 Thrombocytopenia, unspecified; E11.42 Type 2 diabetes mellitus with diabetic polyneuropathy; E87.6 Hypokalemia; F32.9 Major depressive disorder, single episode, unspecified; G47.33 Obstructive sleep apnea (adult) (pediatric); H81.13 Benign paroxysmal vertigo, bilateral; I10 Essential (primary) hypertension; J30.9 Allergic rhinitis, unspecified; I46.9 Cardiac arrest, cause unspecified; F41.1 Generalized anxiety disorder; F02.80 Dementia in other diseases classified elsewhere, unspecified severity, without behavioral disturbance, psychotic disturbance, mood disturbance, and anxiety; B96.1 Klebsiella pneumoniae [K. pneumoniae] as the cause of diseases classified elsewhere; E78.2 Mixed hyperlipidemia; K74.60 Unspecified cirrhosis of liver; Z82.3 Family history of stroke; Z82.49 Family history of ischemic heart disease and other diseases of the circulatory system; Z83.3 Family history of diabetes mellitus; Z91.040 Latex allergy status; Z90.710 Acquired absence of both cervix and uterus; Z79.84 Long term (current) use of oral hypoglycemic drugs; Z79.899 Other long term (current) drug therapy; Z80.9 Family history of malignant neoplasm, unspecified; Z88.6 Allergy status to analgesic agent
CPT/HCPCS: 31500; 36415; 36600; 70450; 71045; 80048; 80053; 80076; 81001; 82140; 82550; 82728; 82803; 82948; 83605; 83874; 84145; 84484; 85025; 85027; 85378; 85610; 85651; 85730; 86140; 86900; 86901; 86927; 87040; 87077; 87088; 87186; 87426; 87804; 92950; 93005; 94002; 94660; 99291; G0378; J0456; J0461; J0696; J1100; J1650; J1815; J1940; J2060; J7030; J7050